=== PATIENT | male | born 1960 | race Caucasian/White ===

== ENCOUNTER 2016-08-13 06:39 | Day surgery (SDC) | payer OTHER ==
[2016-08-13] MEDS ORDERED: Lactated Ringers 1,000 ML IV SCH (07:30)
[2016-08-13] MEDS ORDERED: Midazolam 1 MG/ML 2 ML SDV IV ONE (08:00)
[2016-08-13] MEDS ORDERED: Propofol 200 MG/20 ML SDV IV ONE (08:00)
--- NOTE | 2016-08-13 08:29 | PCM.OPNOTE ---
- General Post-Op/Procedure Note Date of Surgery/Procedure: 08/13/16 Operative Procedure(s): c scope with bx Findings: descending colon polyp Pre Op Diagnosis: screening Post-Op Diagnosis: descending colon polyp Anesthesia Technique: MAC Primary Surgeon: Denny Larkin Anesthesia Provider: Belinda Andrews Pathology: descending colon polyp Complications: None Condition: Good Free Text/Narrative:: see dictation
[2016-08-13 09:03] VITALS: BP 154/99
--- NOTE | 2016-08-13 12:39 | OR ---
DATE OF OPERATION: 08/13/2016 SURGEON: Denny Larkin MD PROCEDURE PERFORMED: Colonoscopy with cold forceps biopsy. PREOPERATIVE DIAGNOSIS: Colon cancer screening. POSTOPERATIVE DIAGNOSIS: Descending colon polyp. INDICATIONS FOR PROCEDURE: This is a 56-year-old white male who presents for screening colonoscopy. He was offered and accepted same. DESCRIPTION OF OPERATION: After an excellent IV sedation was administered, digital rectal exam was performed. No marked abnormality was noted. Flexible colonoscope was inserted and advanced without difficulty to the patient's cecum. The prep was excellent. The following findings were noted: Ascending colon, unremarkable. Transverse colon, unremarkable. Descending colon, a small polypoid lesion, biopsied with cold biopsy forceps and sent for permanent. Sigmoid, unremarkable. Rectum and anus unremarkable. Colon was deflated, the scope was removed. The patient tolerated the procedure well and was taken to recovery room in good condition. /[id number] /MODL
== END 2016-08-13 09:24 | disposition home or self-care (01) ==
LOC: FB.SDS 06:39
PROVIDERS: ATTEND Surgery
PROC: 0DBM8ZX Excision of Descending Colon, Via Natural or Artificial Opening Endoscopic, Diagnostic (ICD-10-PCS; principal; 2016-08-13)
DX: Z12.11 Encounter for screening for malignant neoplasm of colon (principal); D12.4 Benign neoplasm of descending colon; Z79.82 Long term (current) use of aspirin; Z79.899 Other long term (current) drug therapy
CPT/HCPCS: 45380; 88305; J2250; J2704; J7120

== ENCOUNTER 2021-11-19 09:15 | Day surgery (SDC) | payer OTHER ==
[2021-11-19] MEDS ORDERED: Propofol 200 MG/20 ML SDV IV ONE (09:16)
[2021-11-19] MEDS ORDERED: Lactated Ringers 1,000 ML IV SCH (09:45)
[2021-11-19] MEDS ORDERED: Sodium Chloride 0.9% 10 ML Syringe FLUSH PRN (09:45)
[2021-11-19 11:28] VITALS: BP 151/94; PULSE 67
== END 2021-11-19 11:28 | disposition home or self-care (01) ==
LOC: FB.SDS 09:15
PROVIDERS: ATTEND Surgery
DX: Z12.11 Encounter for screening for malignant neoplasm of colon (principal); D12.6 Benign neoplasm of colon, unspecified; Z80.0 Family history of malignant neoplasm of digestive organs; Z79.899 Other long term (current) drug therapy; Z98.890 Other specified postprocedural states
CPT/HCPCS: 00812; 45384; 45385; 88305; J2704; J7120